=== PATIENT | male | born 1965 | race Two or more races ===

== ENCOUNTER → 2023-08-10 | Outpatient (REF) | payer OTHER | LOC: M LABSMT 13:35 | PROVIDERS: ATTEND Urology | DX: Z53.9 Procedure and treatment not carried out, unspecified reason (principal) ==

== ENCOUNTER 2023-09-06 11:29 | Day surgery (SDC) | payer OTHER ==
[~2023-09-06] VITALS: Ht 180.3 cm; Wt 84.5 kg
[~2023-09-06 11:29] MED LIST: LISI10TA22 PO; TAMS1CAP17 PO; ceFAZolin SOD 2 GM in IV 1 EA IV ONE
[2023-09-06] MEDS ORDERED: LR 1,000 ML IV SCH ×2 (11:35→14:45)
[2023-09-06] MEDS ORDERED: fentaNYL 100 MCG/2 ML INJECTION As Ordered ONE (13:14)
[2023-09-06] MEDS ORDERED: MIDAZOLAM INJ 2MG/2ML VIAL As Ordered ONE (13:14)
[2023-09-06] MEDS ORDERED: propofoL 200 MG/20 ML VIAL As Ordered ONE (13:14)
[2023-09-06] MEDS ORDERED: LIDOCAINE 2% 100MG/5ML SDV (FOR ANES.) As Ordered ONE (13:14)
[2023-09-06] MEDS ORDERED: ISOVUE-300 61% 100ML VIAL As Ordered ONE (13:40)
[2023-09-06] MEDS ORDERED: ONDANSETRON 4MG 2ML VIAL As Ordered ONE (14:02)
[2023-09-06] MEDS ORDERED: ACETAMINOPHEN 1000MG 100ML IV BAG As Ordered ONE (14:10)
[2023-09-06] MEDS ORDERED: PHENYLephrine 500MCG 5ML (100MCG/ML) SYRINGE As Ordered ONE (14:13)
[2023-09-06] MEDS ORDERED: HYDROMORPHONE HCL 0.5 MG/ 0.5 ML SYRINGE IV PRN (14:45)
[2023-09-06] MEDS ORDERED: oxyCODONE 5MG TAB PO PRN (14:45)
[2023-09-06] MEDS ORDERED: fentaNYL 100 MCG/2 ML INJECTION IV PRN (14:45)
[2023-09-06] MEDS ORDERED: ONDANSETRON 4MG 2ML VIAL IV PRN (14:45)
[2023-09-06] MEDS ORDERED: OXYB5TAB11 PO (14:55)
[2023-09-06] MEDS ORDERED: PYRI1TAB5 PO (14:55)
[2023-09-06] MEDS ORDERED: MACR100C43 PO (14:55)
[2023-09-06 15:24] VITALS: BP 143/81; TEMP 98.1; O2SAT 96
[2023-09-17 12:07] LABS: CA Oxalate Dihy 20 % (.); Ca Ox Monohydrate 80 % (.); Size 3x3 mm (.)
== END 2023-09-06 15:43 | disposition home or self-care (01) ==
LOC: M SDC 11:29
PROVIDERS: ATTEND Urology
DX: N20.1 Calculus of ureter (principal); I10 Essential (primary) hypertension; F17.210 Nicotine dependence, cigarettes, uncomplicated; Z79.899 Other long term (current) drug therapy
CPT/HCPCS: 52356; 76000; 82365; C1769; C1894; C2617; J0131; J1100; J2250; J2371; J2405; J3010; Q9967

== ENCOUNTER → 2024-05-01 | Outpatient (CLI) | payer OTHER ==
[~2024-05-01] MED LIST changes: +MACR100C43 PO; +OXYB5TAB14 PO; +PYRI1TAB5 PO; -ceFAZolin SOD 2 GM in IV 1 EA IV ONE
== END ==
LOC: M CARPUL 09:06
PROVIDERS: ATTEND Physician Assistant
DX: J44.9 Chronic obstructive pulmonary disease, unspecified (principal)